=== PATIENT | female | born 1980 | race Caucasian/White ===

== ENCOUNTER 2016-10-26 07:11 | Inpatient (IN) | payer MEDICAID ==
[2016-10-26] MEDS ORDERED: Povidone-Iodine 10% Soln 118.25 ML Bottle ONE (07:43)
[2016-10-26] MEDS ORDERED: Thrombin (Bovine) 5,000 Unit Kit ONE (07:43)
[2016-10-26] MEDS ORDERED: Gabapentin 300 MG Cap PO ONE (08:00)
[2016-10-26] MEDS ORDERED: Scopolamine 1.5 MG Transdermal Patch TOP SCH (08:00)
[2016-10-26] MEDS: Lactated Ringers 1,000 ML IV SCH (08:18)
[2016-10-26] MEDS ORDERED: ceFAZolin 2 GM in Sodium Chloride 0.9% 50 ML IV ONE (09:45)
[2016-10-26] MEDS ORDERED: Ketamine 500 MG/5 ML MDV IV ONE (09:45)
[2016-10-26] MEDS ORDERED: Propofol 200 MG/20 ML SDV ONE ×4 (10:41→14:05)
[2016-10-26] MEDS ORDERED: Dexamethasone 4 MG/ML SDV ONE (10:42)
[2016-10-26] MEDS ORDERED: Rocuronium 50 MG/5 ML Vial ONE (10:42)
[2016-10-26] MEDS ORDERED: Ondansetron 4 MG/2 ML SDV ONE (10:42)
[2016-10-26] MEDS: Tranexamic Acid 840 MG in Sodium Chloride 0.9% 50 ML IV SCH ×3 (12:25→20:18)
[2016-10-26] MEDS ORDERED: Lactated Ringers 1,000 ML ONE (13:37)
[2016-10-26] MEDS: Ropivacaine 49.25 ML, Ketorolac 30 MG, EPINEPHrine 0.5 MG, cloNIDine 80 MCG, Sodium Chl... INJECT ONE ×10 (14:26→15:47)
[2016-10-26] MEDS ORDERED: hydrOXYzine HCl 100 MG/2 ML SDV IM ONE (15:29)
[2016-10-26] MEDS ORDERED: Zolpidem 5 MG Tab PO PRN (15:29)
[2016-10-26] MEDS ORDERED: Sodium Chloride 0.9% 10 ML Syringe FLUSH PRN (15:29)
[2016-10-26] MEDS ORDERED: Ondansetron 4 MG/2 ML SDV IVPUSH PRN (15:29)
[2016-10-26] MEDS ORDERED: Aluminum Hydroxide/Magnesium Hydroxide/Simethicone Susp 30 ML Cup PO PRN (15:29)
[2016-10-26] MEDS ORDERED: Sennosides 8.6 MG Tab PO PRN (15:29)
[2016-10-26] MEDS ORDERED: Naloxone 0.4 MG/ML SDV IVPUSH PRN (15:29)
[2016-10-26] MEDS ORDERED: Magnesium Hydroxide 400 MG/5 ML Susp 30 ML Cup PO PRN (15:29)
[2016-10-26] MEDS ORDERED: ALPRAZolam 0.5 MG Tab PO PRN (15:33)
[2016-10-26] MEDS ORDERED: fentaNYL 100 MCG/2 ML SDV IVPUSH ONE (15:56)
[2016-10-26] MEDS: HYDROmorphone 1 MG/ML Syringe IVPUSH PRN ×2 (16:56→20:14)
[2016-10-26] MEDS: Acetaminophen/oxyCODONE 325-5 MG Tab PO PRN ×2 (18:18→23:25)
[2016-10-26] MEDS: ceFAZolin 2 GM in Sodium Chloride 0.9% 50 ML IV SCH (18:19)
[2016-10-26] MEDS ORDERED: Non-Formulary Medication 1 Each (Gabapentin [Neurontin] 600 MG) PO SCH (21:00)
[2016-10-26] MEDS: FLUoxetine 20 MG Cap PO SCH (21:51)
[2016-10-26] MEDS: Gabapentin 300 MG Cap PO SCH (21:52)
[2016-10-27] MEDS: Acetaminophen/oxyCODONE 325-5 MG Tab PO PRN ×5 (03:36→20:21)
[2016-10-27] MEDS: ceFAZolin 2 GM in Sodium Chloride 0.9% 50 ML IV SCH ×2 (03:36→10:57)
[2016-10-27] MEDS: HYDROmorphone 1 MG/ML Syringe IVPUSH PRN (06:21)
[2016-10-27] MEDS: Ropivacaine 49.25 ML, Ketorolac 30 MG, EPINEPHrine 0.5 MG, cloNIDine 80 MCG, Sodium Chl... INJECT ONE ×5 (06:57)
[2016-10-27] MEDS: VERIFY SCOPOLAMINE PATCH TOP SCH ×2 (06:58→09:18)
[2016-10-27] MEDS: Lactated Ringers 1,000 ML IV SCH (08:00)
[2016-10-27] MEDS: Gabapentin 300 MG Cap PO SCH ×2 (09:15→21:28)
[2016-10-27] MEDS: Ketorolac 30 MG/ML SDV IVPUSH SCH ×2 (13:31→21:27)
--- NOTE | 2016-10-27 13:38 | PCM.PN ---
- General Info Date of Service: 10/27/16 Functional Status: Reports: Pain Controlled, Tolerating Diet, Ambulating, Urinating - Review of Systems Neurological: Reports: No Symptoms - Patient Data Vitals - Most Recent: Last Vital Signs Temp 36.5 C 10/27/16 11:50 Pulse 82 10/27/16 11:50 Resp 18 10/27/16 11:50 BP 106/61 10/27/16 11:50 Pulse Ox 96 10/27/16 11:50 Weight - Most Recent: 182 lb 2 oz I&O - Last 24 Hours: Intake & Output 10/26/16 10/27/16 10/27/16 22:59 06:59 14:59 Intake Total 2330 1182 50 Output Total 3791 840 9487 Balance 880 982 -1250 Lab Results Last 24 Hours: Laboratory Results - last 24 hr 10/26/16 10/27/16 10/27/16 Range/Units 07:45 05:39 05:39 WBC 10.9 (4.5-11.0) K/uL RBC 3.58 (3.30-5.50) M/uL Hgb 10.8 L (12.0-15.0) g/dL Hct 34.1 L (36.0-48.0) % MCV 95 (80-98) fL MCH 30 (27-31) pg MCHC 32 (32-36) % Plt Count 188 (150-400) K/uL Neut % (Auto) 69 H (36-66) % Lymph % (Auto) 21 L (24-44) % [place] % (Auto) 10 H (2-6) % Eos % (Auto) 0 L (2-4) % Baso % (Auto) 0 (0-1) % Sodium 140 (140-148) mmol/L Potassium 4.0 (3.6-5.2) mmol/L Chloride 107 (100-108) mmol/L Carbon Dioxide 27 (21-32) mmol/L Anion Gap 6.2 (5.0-14.0) mmol/L BUN 12 (7-18) mg/dL Creatinine 0.6 (0.6-1.0) mg/dL Est Cr Clr Drug Dosing 114.40 mL/min Estimated GFR (MDRD) > 60 (>60) Glucose 100 (74-106) mg/dL Calcium 7.8 L (8.5-10.1) mg/dL Blood Type A POSITIVE Gel Antibody Screen Negative Med Orders - Current: Current Medications Al Hydroxide/Mg Hydroxide (Mag-Al Plus) 30 ml PO Q4H PRN PRN Reason: Indigestion Alprazolam (Xanax) 0.5 mg PO TID PRN PRN Reason: Anxiety Last Admin: 10/27/16 09:18 Dose: 0.5 mg Amitriptyline HCl (Elavil) 37.5 mg PO BEDTIME [facility] Baclofen (Lioresal) 10 mg PO TID PRN PRN Reason: Spasms Diazepam (Valium) 2 - 4 mg PO QID PRN PRN Reason: Pain Fluoxetine HCl (Prozac) 40 mg PO BEDTIME [facility] Last Admin: 10/26/16 21:51 Dose: 40 mg Gabapentin (Neurontin) 600 mg PO BID [facility] Last Admin: 10/27/16 09:15 Dose: 600 mg Hydromorphone HCl (Dilaudid) 1 mg IVPUSH Q2H PRN PRN Reason: Pain Last Admin: 10/27/16 06:21 Dose: 1 mg Ketorolac Tromethamine (Toradol) 30 mg IVPUSH Q8H [facility] Stop: 11/01/16 12:15 Last Admin: 10/27/16 13:31 Dose: 30 mg Magnesium Hydroxide (Milk Of Magnesia) 30 ml PO BID PRN PRN Reason: Constipation Verify Scopolamine (Patch) 0 each TOP DAILY [facility] Last Admin: 10/27/16 09:18 Dose: Not Given Ondansetron HCl (Zofran) 8 mg IVPUSH Q4H PRN PRN Reason: Nausea/Vomiting Oxycodone/Acetaminophen (Percocet 325-5 Mg) 2 tab PO Q4H PRN PRN Reason: Pain Last Admin: 10/27/16 11:49 Dose: 2 tab Scopolamine (Transderm-Scop) 1.5 mg TOP Q72H [facility] Stop: 10/29/16 06:00 Last Admin: 10/26/16 08:16 Dose: 1.5 mg Senna (Senna) 8.6 mg PO BID PRN PRN Reason: Constipation Sodium Chloride (Saline Flush) 10 ml FLUSH ASDIRECTED PRN PRN Reason: Keep Vein Open Zolpidem Tartrate (Ambien) 5 mg PO BEDTIME PRN PRN Reason: Sleep Discontinued Medications Ropivacaine 49.25 ml/Ketorolac Tromethamine 30 mg/Epinephrine HCl 0.5 mg/ Clonidine HCl 80 mcg/ Sodium Chloride 48.45 ml 0 ml INJECT ONETIME ONE Stop: 10/26/16 09:46 Last Admin: 10/27/16 06:57 Dose: Not Given Dexamethasone (Dexamethasone) Confirm Administered Dose 4 mg .ROUTE .STK-MED ONE Stop: 10/26/16 10:43 Diazepam (Valium) 5 mg IVPUSH Q6H PRN PRN Reason: Spasms Last Admin: 10/26/16 20:15 Dose: 5 mg Fentanyl (Sublimaze) 100 mcg IVPUSH ONETIME ONE Stop: 10/26/16 15:57 Last Admin: 10/26/16 16:00 Dose: 100 mcg Fentanyl Citrate (Fentanyl) Confirm Administered Dose 500 mcg .ROUTE .STK-MED ONE Stop: 10/26/16 10:41 Fentanyl Citrate (Fentanyl) Confirm Administered Dose 500 mcg .ROUTE .STK-MED ONE Stop: 10/26/16 14:19 Gabapentin (Neurontin) 300 mg PO ONETIME ONE Stop: 10/26/16 08:01 Last Admin: 10/26/16 08:15 Dose: 300 mg Hydroxyzine HCl (Vistaril) 75 mg IM ONETIME ONE Stop: 10/26/16 15:30 Last Admin: 10/26/16 15:33 Dose: 75 mg Lactated Ringer's (Ringers, Lactated) 1,000 mls @ 100 mls/hr IV ASDIRECTED [facility] Last Admin: 10/27/16 08:00 Dose: 100 mls/hr Cefazolin Sodium 2 gm/ Sodium (Chloride) 50 mls @ 100 mls/hr IV ONETIME ONE Stop: 10/26/16 10:14 Last Admin: 10/26/16 11:46 Dose: 100 mls/hr Tranexamic Acid 840 mg/ Sodium (Chloride) 58.4 mls @ 233.6 mls/hr IV Q3H [facility] Stop: 10/26/16 12:59 Last Admin: 10/26/16 20:18 Dose: Not Given Ketamine HCl 100 mg/ Sodium (Chloride) 100 mls @ 17 mls/hr IV ASDIRECTED [facility] Stop: 10/26/16 12:45 Lactated Ringer's (Ringers, Lactated) Confirm Administered Dose 1,000 mls @ as directed .ROUTE .STK-MED ONE Stop: 10/26/16 13:38 Cefazolin Sodium 2 gm/ Sodium (Chloride) 50 mls @ 100 mls/hr IV Q8H [facility] Stop: 10/27/16 10:59 Last Admin: 10/27/16 10:57 Dose: 100 mls/hr Ketamine HCl (Ketalar) 28 mg IV ONETIME ONE Stop: 10/26/16 09:46 Last Admin: 10/26/16 20:17 Dose: Not Given Naloxone HCl (Narcan) 0.2 mg IVPUSH ASDIRECTED PRN PRN Reason: Oversedation Stop: 10/26/16 22:00 Ondansetron HCl (Zofran) Confirm Administered Dose 4 mg .ROUTE .STK-MED ONE Stop: 10/26/16 10:43 Povidone Iodine (Betadine 10% Soln) Confirm Administered Dose 1 ml .ROUTE .STK- MED ONE Stop: 10/26/16 07:44 Propofol (Diprivan 20 Ml) Confirm Administered Dose 200 mg .ROUTE .STK-MED ONE Stop: 10/26/16 10:42 Propofol (Diprivan 20 Ml) Confirm Administered Dose 200 mg .ROUTE .STK-MED ONE Stop: 10/26/16 10:43 Propofol (Diprivan 20 Ml) Confirm Administered Dose 600 mg .ROUTE .STK-MED ONE Stop: 10/26/16 12:36 Propofol (Diprivan 20 Ml) Confirm Administered Dose 400 mg .ROUTE .STK-MED ONE Stop: 10/26/16 14:06 Rocuronium [place] (Zemuron) Confirm Administered Dose 50 mg .ROUTE .STK-MED ONE Stop: 10/26/16 10:43 Thrombin (Thrombin-Jmi) Confirm Administered Dose 15,000 unit .ROUTE .STK-MED ONE Stop: 10/26/16 07:44 Last Admin: 10/26/16 12:35 Dose: 10,000 unit - Exam General: Alert, Oriented Extremities: Normal Inspection, Normal Range of Motion, Non-Tender, No Pedal Edema, Normal Capillary Refill Skin: Warm, Dry, Intact Wound/Incisions: Healing Well, Dressing Dry and Intact, No Drainage Neurological: No New Focal Deficit, Normal Gait, Strength Equal Bilateral, Reflexes Equal Bilateral Psy/Mental Status: Alert, Normal Affect, Normal Mood - Problem List Review Problem List Initiated/Reviewed/Updated: Yes - My Orders Last 24 Hours: My Active Orders 10/26/16 15:29 Patient Status [ADT] Routine Ambulate [RC] QID Bedrest Bathroom Privileges [RC] ASDIRECTED Head of Bed Elevation [RC] ASDIRECTED Immobilizer [RC] ASDIRECTED Intake and Output [RC] QSHIFT Neurovascular Check [RC] Q4HR Notify Provider Intake and Out [RC] ASDIRECTED Notify Provider Laboratory Res [RC] ASDIRECTED Notify Provider Status Change [RC] ASDIRECTED Notify Provider Vital Signs [RC] ASDIRECTED Oxygen Therapy [RC] PRN RT Incentive Spirometry [RC] ASDIRECTED Turn, Cough, Deep Breathe [RC] .PRN Up to Chair [RC] QID Wound Care [RC] Q12H OT Evaluation and Treatment [CONS] Routine PT Evaluation and Treatment [CONS] Routine Acetaminophen/oxyCODONE [Percocet 325-5 MG] 2 tab PO Q4H PRN Alum Hydrox/Mag Hydrox/Simeth [Mag-Al Plus] 30 ml PO Q4H PRN HYDROmorphone [Dilaudid] 1 mg IVPUSH Q2H PRN Magnesium Hydroxide [Milk of Magnesia] 30 ml PO BID PRN Ondansetron [Zofran] 8 mg IVPUSH Q4H PRN Sennosides [Senna] 8.6 mg PO BID PRN Sodium Chloride 0.9% [Saline Flush] 10 ml FLUSH ASDIRECTED PRN Zolpidem [Ambien] 5 mg PO BEDTIME PRN Encourage Fluids [OM.PC] Routine Saline Lock Insert [OM.PC] Routine Sequential Compression Device [OM.PC] Routine Resuscitation Status Routine 10/26/16 15:33 ALPRAZolam [Xanax] 0.5 mg PO TID PRN Baclofen [Lioresal] 10 mg PO TID PRN 10/26/16 21:00 FLUoxetine [PROzac] 40 mg PO BEDTIME Gabapentin [Neurontin] 600 mg PO BID 10/27/16 08:38 Convert IV to Saline Lock [OM.PC] Routine 10/27/16 11:54 Diazepam [Valium] 2 - 4 mg PO QID PRN 10/27/16 13:00 Ketorolac [Toradol] 30 mg IVPUSH Q8H 10/27/16 21:00 Amitriptyline [Elavil] 37.5 mg PO BEDTIME 10/28/16 05:15 BASIC METABOLIC PANEL,BMP [CHEM] DAILY CBC WITH AUTO DIFF [HEME] DAILY 10/29/16 05:15 BASIC METABOLIC PANEL,BMP [CHEM] DAILY CBC WITH AUTO DIFF [HEME] DAILY 10/30/16 05:15 BASIC METABOLIC PANEL,BMP [CHEM] DAILY CBC WITH AUTO DIFF [HEME] DAILY - Plan Plan:: Haley is a pleasant 36-year-old female who is status post op day 1 of lumbar fusion revision. Patient is doing very well. She has no concerns at this time. Pain is under control with oral pain medication. Plan: At this time will continue to encourage PT/OT. Pain management is obtained and will be reassessed often. We encourage ambulation today. We will see how she does tomorrow for possible discharge.
[2016-10-27] MEDS: Diazepam 2 MG Tab PO PRN (14:59)
[2016-10-27] MEDS: Baclofen 10 MG Tab PO PRN (17:27)
[2016-10-27] MEDS ORDERED: Amitriptyline 25 MG Tab PO SCH (21:00)
[2016-10-27] MEDS: FLUoxetine 20 MG Cap PO SCH (21:28)
[2016-10-28] MEDS: Acetaminophen/oxyCODONE 325-5 MG Tab PO PRN ×3 (00:23→08:30)
[2016-10-28] MEDS: Baclofen 10 MG Tab PO PRN (04:29)
[2016-10-28] MEDS: Ketorolac 30 MG/ML SDV IVPUSH SCH (04:29)
[2016-10-28] MEDS: Gabapentin 300 MG Cap PO SCH (08:29)
[2016-10-28] MEDS: VERIFY SCOPOLAMINE PATCH TOP SCH (08:34)
[2016-10-28] MEDS: Diazepam 2 MG Tab PO PRN (11:22)
[2016-10-28 11:44] VITALS: BP 134/74
--- NOTE | 2016-10-28 12:24 | PCM.DCSUM1 ---
Discharge Summary - Hospital Course Free Text/Narrative:: Ama is status post postop day 2 of a lumbar fusion. She is doing very well. Patient is ambulating without any difficulties. She is urinating with no difficulties. Pain is tolerable with oral pain medication. - Discharge Data Discharge Date: 10/28/16 Discharge Disposition: Home, Self-Care 01 Condition: Good - Patient Summary/Data Operative Procedure(s) Performed: Lumbar fusion Consults: Consultations 10/26/16 15:29 OT Evaluation and Treatment [CONS] Routine Please Evaluate and Treat. OT Reason for Consult: Strengthening This query below is only for informational purposes and is not editable. PT Evaluation and Treatment [CONS] Routine Please Evaluate and Treat. PT Reason for Consult: Strengthening This query below is only for informational purposes and is not editable. Recommended Follow-up Testing/Procedures: Patient is to follow-up with Ashwini Millan CLAIMS CUST[employer]ER SERVICE REPRESENTATIVE in 2 weeks for suture removal - Patient Instructions Diet: Usual Diet as Tolerated Activity: As Tolerated, Cough & Deep Breathe, No Lifting Over 10 Pounds Driving: Do Not Drive Showering/Bathing: May Shower Wound/Incision Care: Keep Operative Site/Wound Site Clean and Dry, Change Dressing Daily, Do NOT Change Dressing Notify Provider of: Fever, Increased Pain, Swelling and Redness, Drainage, Nausea and/or Vomiting - Discharge Plan Prescriptions/Med Rec: Acetaminophen/oxyCODONE [Percocet 325-5 MG] 1 tab PO Q4H PRN #90 tablet PRN Reason: Pain Diazepam [Valium] 2 mg PO QID PRN #60 tablet PRN Reason: Spasms Home Medications: Home Meds ALPRAZolam [Xanax] 0.5 mg PO TID PRN 07/29/16 [History] Amitriptyline [Elavil] 37.5 mg PO DAILY 07/29/16 [History] Baclofen 10 mg PO TID PRN 07/29/16 [History] FLUoxetine [PROzac] 40 mg PO DAILY 07/29/16 [History] Gabapentin [Neurontin] 600 mg PO BID 07/29/16 [History] Varenicline [Chantix] 1 tab PO DAILY 07/29/16 [History] Ibuprofen 800 mg pe PO Q4H PRN 08/02/16 [History] Acetaminophen/oxyCODONE [Percocet 325-5 MG] 1 tab PO Q4H PRN #90 tablet [Rx] Diazepam [Valium] 2 mg PO QID PRN #60 tablet 10/28/16 [Rx] - Discharge Summary/Plan Comment DC Time >30 min.: Yes Discharge Summary/Plan Comment: Patient will be discharged home today. She is given Percocet and Valium to take at home. She'll follow-up with me in 2 weeks for suture removal. She will notify us if she has any other issues in the meantime. - Patient Data Vitals - Most Recent: Last Vital Signs Temp 36.6 C 10/28/16 11:41 Pulse 90 10/28/16 11:41 Resp 16 10/28/16 11:41 BP 134/74 10/28/16 11:41 Pulse Ox 100 10/28/16 11:41 Weight - Most Recent: 182 lb 2.017 oz I&O - Last 24 hours: Intake & Output 10/27/16 10/28/16 10/28/16 22:59 06:59 14:59 Intake Total 4850 1400 Output Total 800 Balance 4050 1400 Lab Results - Last 24 hrs: Laboratory Results - last 24 hr 10/28/16 10/28/16 Range/Units 05:00 05:00 WBC 9.4 (4.5-11.0) K/uL RBC 3.66 (3.30-5.50) M/uL Hgb 10.9 L (12.0-15.0) g/dL Hct 35.2 L (36.0-48.0) % MCV 96 (80-98) fL MCH 30 (27-31) pg MCHC 31 L (32-36) % Plt Count 202 (150-400) K/uL Neut % (Auto) 60 (36-66) % Lymph % (Auto) 27 (24-44) % [place] % (Auto) 11 H (2-6) % Eos % (Auto) 2 (2-4) % Baso % (Auto) 1 (0-1) % Sodium 141 (140-148) mmol/L Potassium 4.8 (3.6-5.2) mmol/L Chloride 107 (100-108) mmol/L Carbon Dioxide 30 (21-32) mmol/L Anion Gap 4.1 L (5.0-14.0) mmol/L BUN 13 (7-18) mg/dL Creatinine 0.7 (0.6-1.0) mg/dL Est Cr Clr Drug Dosing 98.05 mL/min Estimated GFR (MDRD) > 60 (>60) Glucose 100 (74-106) mg/dL Calcium 8.0 L (8.5-10.1) mg/dL Med Orders - Current: Current Medications Al Hydroxide/Mg Hydroxide (Mag-Al Plus) 30 ml PO Q4H PRN PRN Reason: Indigestion Alprazolam (Xanax) 0.5 mg PO TID PRN PRN Reason: Anxiety Last Admin: 10/27/16 09:18 Dose: 0.5 mg Amitriptyline HCl (Elavil) 37.5 mg PO BEDTIME [facility] Last Admin: 10/27/16 21:28 Dose: 37.5 mg Baclofen (Lioresal) 10 mg PO TID PRN PRN Reason: Spasms Last Admin: 10/28/16 04:29 Dose: 10 mg Diazepam (Valium) 2 - 4 mg PO QID PRN PRN Reason: Pain Last Admin: 10/28/16 11:22 Dose: 4 mg Fluoxetine HCl (Prozac) 40 mg PO BEDTIME [facility] Last Admin: 10/27/16 21:28 Dose: 40 mg Gabapentin (Neurontin) 600 mg PO BID [facility] Last Admin: 10/28/16 08:29 Dose: 600 mg Hydromorphone HCl (Dilaudid) 1 mg IVPUSH Q2H PRN PRN Reason: Pain Last Admin: 10/27/16 06:21 Dose: 1 mg Ketorolac Tromethamine (Toradol) 30 mg IVPUSH Q8H [facility] Stop: 11/01/16 12:15 Last Admin: 10/28/16 04:29 Dose: 30 mg Magnesium Hydroxide (Milk Of Magnesia) 30 ml PO BID PRN PRN Reason: Constipation Verify Scopolamine (Patch) 0 each TOP DAILY [facility] Last Admin: 10/28/16 08:34 Dose: Not Given Ondansetron HCl (Zofran) 8 mg IVPUSH Q4H PRN PRN Reason: Nausea/Vomiting Oxycodone/Acetaminophen (Percocet 325-5 Mg) 2 tab PO Q4H PRN PRN Reason: Pain Last Admin: 10/28/16 08:30 Dose: 2 tab Scopolamine (Transderm-Scop) 1.5 mg TOP Q72H [facility] Stop: 10/29/16 06:00 Last Admin: 10/26/16 08:16 Dose: 1.5 mg Senna (Senna) 8.6 mg PO BID PRN PRN Reason: Constipation Last Admin: 10/27/16 21:41 Dose: 8.6 mg Sodium Chloride (Saline Flush) 10 ml FLUSH ASDIRECTED PRN PRN Reason: Keep Vein Open Zolpidem Tartrate (Ambien) 5 mg PO BEDTIME PRN PRN Reason: Sleep Discontinued Medications Ropivacaine 49.25 ml/Ketorolac Tromethamine 30 mg/Epinephrine HCl 0.5 mg/ Clonidine HCl 80 mcg/ Sodium Chloride 48.45 ml 0 ml INJECT ONETIME ONE Stop: 10/26/16 09:46 Last Admin: 10/27/16 06:57 Dose: Not Given Dexamethasone (Dexamethasone) Confirm Administered Dose 4 mg .ROUTE .STK-MED ONE Stop: 10/26/16 10:43 Diazepam (Valium) 5 mg IVPUSH Q6H PRN PRN Reason: Spasms Last Admin: 10/26/16 20:15 Dose: 5 mg Fentanyl (Sublimaze) 100 mcg IVPUSH ONETIME ONE Stop: 10/26/16 15:57 Last Admin: 10/26/16 16:00 Dose: 100 mcg Fentanyl Citrate (Fentanyl) Confirm Administered Dose 500 mcg .ROUTE .STK-MED ONE Stop: 10/26/16 10:41 Fentanyl Citrate (Fentanyl) Confirm Administered Dose 500 mcg .ROUTE .STK-MED ONE Stop: 10/26/16 14:19 Gabapentin (Neurontin) 300 mg PO ONETIME ONE Stop: 10/26/16 08:01 Last Admin: 10/26/16 08:15 Dose: 300 mg Hydroxyzine HCl (Vistaril) 75 mg IM ONETIME ONE Stop: 10/26/16 15:30 Last Admin: 10/26/16 15:33 Dose: 75 mg Lactated Ringer's (Ringers, Lactated) 1,000 mls @ 100 mls/hr IV ASDIRECTED [facility] Last Admin: 10/27/16 08:00 Dose: 100 mls/hr Cefazolin Sodium 2 gm/ Sodium (Chloride) 50 mls @ 100 mls/hr IV ONETIME ONE Stop: 10/26/16 10:14 Last Admin: 10/26/16 11:46 Dose: 100 mls/hr Tranexamic Acid 840 mg/ Sodium (Chloride) 58.4 mls @ 233.6 mls/hr IV Q3H [facility] Stop: 10/26/16 12:59 Last Admin: 10/26/16 20:18 Dose: Not Given Ketamine HCl 100 mg/ Sodium (Chloride) 100 mls @ 17 mls/hr IV ASDIRECTED [facility] Stop: 10/26/16 12:45 Lactated Ringer's (Ringers, Lactated) Confirm Administered Dose 1,000 mls @ as directed .ROUTE .STK-MED ONE Stop: 10/26/16 13:38 Cefazolin Sodium 2 gm/ Sodium (Chloride) 50 mls @ 100 mls/hr IV Q8H [facility] Stop: 10/27/16 10:59 Last Admin: 10/27/16 10:57 Dose: 100 mls/hr Ketamine HCl (Ketalar) 28 mg IV ONETIME ONE Stop: 10/26/16 09:46 Last Admin: 10/26/16 20:17 Dose: Not Given Naloxone HCl (Narcan) 0.2 mg IVPUSH ASDIRECTED PRN PRN Reason: Oversedation Stop: 10/26/16 22:00 Ondansetron HCl (Zofran) Confirm Administered Dose 4 mg .ROUTE .STK-MED ONE Stop: 10/26/16 10:43 Povidone Iodine (Betadine 10% Soln) Confirm Administered Dose 1 ml .ROUTE .STK- MED ONE Stop: 10/26/16 07:44 Propofol (Diprivan 20 Ml) Confirm Administered Dose 200 mg .ROUTE .STK-MED ONE Stop: 10/26/16 10:42 Propofol (Diprivan 20 Ml) Confirm Administered Dose 200 mg .ROUTE .STK-MED ONE Stop: 10/26/16 10:43 Propofol (Diprivan 20 Ml) Confirm Administered Dose 600 mg .ROUTE .STK-MED ONE Stop: 10/26/16 12:36 Propofol (Diprivan 20 Ml) Confirm Administered Dose 400 mg .ROUTE .STK-MED ONE Stop: 10/26/16 14:06 Rocuronium [place] (Zemuron) Confirm Administered Dose 50 mg .ROUTE .STK-MED ONE Stop: 10/26/16 10:43 Thrombin (Thrombin-Jmi) Confirm Administered Dose 15,000 unit .ROUTE .STK-MED ONE Stop: 10/26/16 07:44 Last Admin: 10/26/16 12:35 Dose: 10,000 unit *Q Meaningful Use (DIS) - VTE *Q VTE Criteria *Q: - Stroke *Q Stroke Criteria *Q: - AMI *Q AMI Criteria *Q:
--- NOTE | 2016-10-28 13:45 | OR ---
DATE OF PROCEDURE: 10/26/2016 PREOPERATIVE DIAGNOSES: 1. Pseudoarthrosis, L5-S1. 2. Foraminal stenosis, L4-5. POSTOPERATIVE DIAGNOSES: 1. Pseudoarthrosis, L5-S1. 2. Foraminal stenosis, L4-5. PROCEDURE: 1. Revision transforaminal lumbar interbody fusion with segmental instrumentation, L4-S1. 2. Interbody placement L4-5. 3. Hemilaminectomy required for decompression in addition to decompression required for interbody placement at L4-5. 4. Posterior lateral fusion performed at L4-5 on the right. 5. Posterior lateral fusion on the left at L5-S1. 6. Use of fluoroscopy unit. 7. Allograft from hemilaminectomy and total facetectomy at L4-5 on the left used in autografting at the interbody space, as well as a posterior lateral fusion. BACK GRAY CLOTH WASHER: JESUS Medel. ANESTHESIA: General endotracheal intubation. FLUID: Lactated Ringer solution. ESTIMATED BLOOD LOSS: 100 mL. COMPLICATIONS: None. SPECIMENS: None. DISPOSITION: Stable to PACU. HISTORY AND INDICATIONS FOR PROCEDURE: The patient had fusion approximately one year ago. She was having pain for the last 8 months with continued right lower extremity radiculopathy. The preoperative imaging confirmed the above-mentioned diagnosis. Risks and benefits of the procedure were explained to the patient. Informed consent was obtained. DETAILS OF PROCEDURE: The patient was seen preoperatively by myself and the Anesthesia staff in the preop holding area, where the operative site was marked. She was brought to the operative suite by the Anesthesia staff, where general anesthesia was administered. Neuromonitoring leads were placed. Sterile De Oliveira catheter was placed. The fluoroscopy unit was draped in a sterile manner. The patient was then placed into a prone position on a Jong table. All extremities found to be well padded. The bed was flexed, eyes were protected. Neuromonitoring leads were normal at baseline. The patient was prepped and draped in a sterile manner. Time-out was called identifying the correct patient, correct procedure, the correct site, and antibiotics had been given with appropriate period of time. Lateral fluoroscopy was used to identify the level of the L4 pedicles to S1 pedicles and a midline incision was made from approximately the inferior spinous process of L3 down to the spinous process of L1 through the prior incision and carried down to the deep fascia. Bleeding was controlled with Bovie electrocautery, bipolar electrocautery, and Aquamantys 5.0 unit during the procedure. Sterile gloves were used for retraction. I then used a Carcamo and went over the L4 spinous process and the inferior portion of the L3 spinous process over the L4 lamina and facets down to the transverse processes bilaterally at L4. I then carefully went lateral at the L5 and S1 level to avoid a durotomy, as there were prior laminectomies, which were wide down at those levels, and then the screws and rods were identified. I then went down to their respective pars, facets, and transverse processes. Previous posterior lateral fusion had not been done, so that is why we went to the transverse processes. We then removed the locking caps and rods, I started on the left side and removed those previous screws. There were some problems with the screws, which had been noted on my notes, that were in, and these were replaced with three 7.5 x 50 mm screws with the exception of L5 on the right, which was a 40 mm screw. I placed the left screws and then the right screws and obtained fluoroscopy to make sure that they were good. The process for replacing the screws was to drill for the pedicle, then use a PediGuard unit and place a track for the screws, followed by tapping, followed by pedicle probe, followed by final screw placement. All screws tested above 17, with the exception of the L4 screw on the left. I did remove this screw. I felt the inside of the pedicle tract multiple times. We were certainly well within the pedicle and inside the vertebral body. I then replaced this screw, as it looked good. We then took our films of the screws and there they all looked to be in good position. After this was accomplished, we concentrated on left L4-5 facetectomy. This was done with a drill, and I did a hemilaminectomy in order to accomplish this, as well as provide a little bit of decompression at the lateral recess on the left. After this had been accomplished, we removed the flavum, and then starting at the superior portion of the pedicle at L4 on the left, I used the bipolar to identify the disk space. I used a [place]. The exiting L4 nerve root on the left was identified and protected. We used a nerve root retractor also. I then used a #15 blade. We incised through the disk and then used sequential paula from 7 to 10 mm and then spent a great deal of time using upgoing pituitaries and straight pituitaries, as well as straight upgoing and downgoing curettes, to remove the intervertebral disk and to rough up the vertebral end plates. We then inserted our bone funnel and then inserted the graft in the hemilaminectomy, which was mixed with Globus Signify allograft, and placed it anteriorly. I then placed a 10 x 22, 10-degree, 8 to 14 mm interbody anteriorly. I went as anterior as possible and then opened it up. This was confirmed on fluoroscopy. After this had been accomplished, I then washed out our wound with 3 L of Betadine infused irrigation. I then decorticated the transverse processes on the right at L4 and L5 and roughed up their facets laterally and their pars and then grafted laterally, and then on the left, I performed the same at L5-S1. After this had been accomplished, we placed our tulips on, followed by our rods, followed by locking caps, and then torqued to the specification. We then closed the incision with minimal bleeding, and we closed it with #2 Vicryl in an interlocking fashion, followed by #2 Vicryl in a running fashion, followed by a liter of Betadine infused irrigation, followed by STRATAFIX, #2 suture for the subcutaneous layer, which closed it very nicely, followed by 2-0 Vicryl pops, followed by 2-0 nylon in a horizontal mattress manner, followed by a sterile dressing. The patient was then flipped into her hospital bed, neuromonitoring leads were removed, and taken to PACU in stable condition. German Mejia DO /[id number]
== END 2016-10-28 12:50 | disposition home or self-care (01) | DRG 304 ==
LOC: JP.MS 07:11 → JP.SDS 07:11 → EDSTATUS 07:30 → JP.MS 15:29
PROVIDERS: ADMIT Orthopaedic Surgery; ATTEND Orthopaedic Surgery
DX: M48.06 Spinal stenosis, lumbar region (principal); M96.0 Pseudarthrosis after fusion or arthrodesis; M54.9 Dorsalgia, unspecified; G89.29 Other chronic pain; Z98.1 Arthrodesis status
CPT/HCPCS: 36415; 76001; 80048; 85025; 86850; 86900; 86901; 94762; 97162-GP; 97165-GO; 97530-GP; 97535-GP; A9270-GY; C1713; J0171; J0690; J0735; J1100; J1170; J1885; J2405; J2704; J2795; J3010; J3360; J3410; J7030; J7050; J7120